=== PATIENT | male | born 1995 | race Caucasian/White ===

== ENCOUNTER 2019-08-28 02:56 | Emergency (ER) | payer BC, OTHER ==
[2019-08-28 03:06] VITALS: BP 144/84; PULSE 68; RESP 18; TEMP 97.4
[2019-08-28] MEDS ORDERED: MAG HYDROX/AL HYDROX/SIMETH 30 ML, HYOSCYAMINE ELIXIR 10 ML, LIDOCAINE VISCOUS 2% 10 ML PO STA ×3 (03:09)
[2019-08-28] MEDS ORDERED: ONDANSETRON 4 MG/2 ML VIAL IVP STA (03:24)
--- NOTE | 2019-08-28 03:24 | ED ---
General Adult HPI - General Chief complaint: Abdominal Pain Stated complaint: Upper Abd/Lft Shoulder Pain Time Seen by Provider: 08/28/19 03:08 Source: patient Mode of arrival: ambulatory - History of Present Illness Initial comments: Dictation was produced using [employer] dictation software. please excuse any grammatical, word or spelling errors. Chief Complaint: 24-year-old male in no serial past medical history presents with 7 hours of left upper quadrant abdominal pain. History of Present Illness: Patient is 24-year-old male who presents with left upper quadrant abdominal pain. Patient states his symptoms have been ongoing for the last 7 hours. He localizes the pain to his left upper quadrant. States he had some nausea but no vomiting. Patient reports that he also feels worsening symptoms when he takes a deep breath. No diarrhea. No fever, chills or night sweats. Patient did not eat any suspect foods recently. The ROS documented in this emergency department record has been reviewed and confirmed by me. Those systems with pertinent positive or negative responses have been documented in the HPI. All other systems are other negative and/or noncontributory. PHYSICAL EXAM: General Impression: Alert and oriented x3, not in acute distress HEENT: Normocephalic atraumatic, extra-ocular movements intact, pupils equal and reactive to light bilaterally, mucous membranes moist. Cardiovascular: Heart regular rate and rhythm, S1&S2 audible, no murmurs, rubs or gallops Chest: Lungs clear to auscultation bilaterally, no rhonchi, no wheeze, no rales, mild tenderness to palpation over the left ribs inferiorly Abdomen: Bowel sounds present, abdomen soft, non-tender, non-distended, no organomegaly Musculoskeletal: Pulses present and equal in all extremities, no peripheral edema Motor: no focal deficits noted Neurological: CN II-XII grossly intact, no focal motor or sensory deficits noted Skin: Intact with no visualized rashes Psych: Normal affect and mood ED course: 24-year-old male presents with chief complaint of acute abdominal pain. As upon arrival are within acceptable limits. Laboratory evaluation obtained. No leukocytosis. Hemoglobin stable. Metabolic panel is unremarkable. Urinalysis is negative. Chest x-ray and abdominal x- rays unremarkable. Of note on abdominal x-ray there is some gas at the site of where his symptoms are. This is likely secondary to gas pain. Patient reports improvement of his nausea with Zofran. Patient given starter pack Zofran ODT. He is given prescription for Bentyl that is sent to us preferred pharmacy. Prevacid discussed. Patient clear for discharge. Patient told to add more fiber to his diet. He states he only eats fast food. - Related Data Previous Rx's Medication Instructions Recorded Dicyclomine [Bentyl] 10 mg PO TID PRN #12 capsule 08/28/19 Allergies Allergy/AdvReac Type Severity Reaction Status Date / Time No Known Allergies Allergy Verified 08/28/19 03:06 Review of Systems ROS Statement: Those systems with pertinent positive or pertinent negative responses have been documented in the HPI. ROS Other: All systems not noted in ROS Statement are negative. Past Medical History Past Medical History: No Reported History History of Any Multi-Drug Resistant Organisms: None Reported Past Surgical History: Appendectomy Additional Past Surgical History / Comment(s): arachnoid cyst Past Psychological History: No Psychological Hx Reported Smoking Status: Never smoker Past Alcohol Use History: Occasional Past Drug Use History: None Reported Course Vital Signs 08/28/19 03:00 Temperature 97.4 F L Pulse Rate 68 Respiratory 18 Rate Blood Pressure 144/84 O2 Sat by Pulse 100 Oximetry Medical Decision Making - Lab Data Result diagrams: 08/28/19 03:21 08/28/19 03:21 Lab Results 08/28/19 08/28/19 08/28/19 Range/Units 03:21 03:21 03:21 WBC 9.9 (3.8-10.6) k/uL RBC 4.75 (4.30-5.90) m/uL Hgb 14.5 (13.0-17.5) gm/dL Hct 42.8 (39.0-53.0) % MCV 90.0 (80.0-100.0) fL MCH 30.4 (25.0-35.0) pg MCHC 33.8 (31.0-37.0) g/dL RDW 12.3 (11.5-15.5) % Plt Count 316 (150-450) k/uL Neutrophils % 48 % Lymphocytes % 42 % Monocytes % 5 % Eosinophils % 2 % Basophils % 1 % Neutrophils # 4.7 (1.3-7.7) k/uL Lymphocytes # 4.1 (1.0-4.8) k/uL Monocytes # 0.5 (0-1.0) k/uL Eosinophils # 0.2 (0-0.7) k/uL Basophils # 0.1 (0-0.2) k/uL Sodium 138 (137-145) mmol/L Potassium 3.8 (3.5-5.1) mmol/L Chloride 103 (98-107) mmol/L Carbon Dioxide 28 (22-30) mmol/L Anion Gap 7 mmol/L BUN 13 (9-20) mg/dL Creatinine 0.88 (0.66-1.25) mg/dL Est GFR (CKD-EPI)AfAm >90 (>60 ml/min/1.73 sqM) Est GFR (CKD-EPI)NonAf >90 (>60 ml/min/1.73 sqM) Glucose 105 H (74-99) mg/dL Calcium 9.9 (8.4-10.2) mg/dL Total Bilirubin 0.8 (0.2-1.3) mg/dL AST 36 (17-59) U/L ALT 30 (4-49) U/L Alkaline Phosphatase 70 (38-126) U/L Total Protein 7.9 (6.3-8.2) g/dL Albumin 4.9 (3.5-5.0) g/dL Lipase 77 (23-300) U/L Urine Color Light Yellow Urine Appearance Clear (Clear) Urine pH 6.5 (5.0-8.0) Ur Specific [place] 1.015 (1.001-1.035) Urine Protein Negative (Negative) Urine Glucose (UA) Negative (Negative) Urine Ketones Negative (Negative) Urine Blood Negative (Negative) Urine Nitrite Negative (Negative) Urine Bilirubin Negative (Negative) Urine Urobilinogen <2.0 (<2.0) mg/dL Ur Leukocyte Esterase Negative (Negative) Disposition Clinical Impression: Abdominal pain Disposition: HOME SELF-CARE Condition: Good Instructions (If sedation given, give patient instructions): Abdominal Pain (ED) Prescriptions: Dicyclomine [Bentyl] 10 mg PO TID PRN #12 capsule PRN Reason: gas pain Is patient prescribed a controlled substance at d/c from ED?: No Referrals: None,Stated [Primary Care Provider] - 1-2 days Time of Disposition: 03:52
[2019-08-28 03:31] LABS: Appearance,Urine Clear (Clear); Basophils # (A) 0.1 k/uL (0-0.2); Basophils % (A) 1 %; Bilirubin,Urine Negative (Negative); Blood,Urine Negative (Negative); Color,Urine Light Yellow; Eosinophils # (A) 0.2 k/uL (0-0.7); Eosinophils % (A) 2 %; Glucose,Urine (UA) Negative (Negative); HCT 42.8 % (39.0-53.0); HGB 14.5 gm/dL (13.0-17.5); Ketones,Urine Negative (Negative); Leukocyte Esterase,Urine Negative (Negative); Lymphocytes # (A) 4.1 k/uL (1.0-4.8); Lymphocytes % (A) 42 %; MCH 30.4 pg (25.0-35.0); MCHC 33.8 g/dL (31.0-37.0); Mean Platelet Volume 7.8; Monocytes # (A) 0.5 k/uL (0-1.0); Monocytes % (A) 5 %; Neutrophils # (A) 4.7 k/uL (1.3-7.7); Neutrophils % (A) 48 %; Nitrite,Urine Negative (Negative); PH, Urine 6.5 (5.0-8.0); Platelet Count 316 k/uL (150-450); Protein,Urine Negative (Negative); RBC 4.75 m/uL (4.30-5.90); RDW 12.3 % (11.5-15.5); Specific Gravity,Urine 1.015 (1.001-1.035); Urobilinogen,Urine <2.0 mg/dL (<2.0); WBC 9.9 k/uL (3.8-10.6)
--- NOTE | 2019-08-28 03:36 | XR ---
EXAMINATION TYPE: XR abdomen 1V DATE OF EXAM: 08/28/2019 COMPARISON: NONE HISTORY: Left upper quadrant pain TECHNIQUE: 2 views upright FINDINGS: Bowel gas pattern is normal. There is no sign of intestinal obstruction or pneumoperitoneum . Fecal pattern is normal. Lung bases are clear. There are no pathologic calcifications. IMPRESSION: Nonacute abdomen.
--- NOTE | 2019-08-28 03:36 | XR ---
EXAMINATION TYPE: XR chest 2V DATE OF EXAM: 08/28/2019 COMPARISON: NONE HISTORY: Left upper quadrant pain TECHNIQUE: FINDINGS: Heart and mediastinum are normal. Lungs are clear. Diaphragm is normal. Bony thorax appears normal. Pulmonary vascularity is normal. IMPRESSION: Normal chest
[2019-08-28 03:43] LABS: ALT 30 U/L (4-49); AST 36 U/L (17-59); African American GFR (CKD) >90 (>60 ml/min/1.73 sqM); Albumin 4.9 g/dL (3.5-5.0); Alkaline Phosphatase 70 U/L (38-126); Anion Gap 7 mmol/L; Blood Urea Nitrogen 13 mg/dL (9-20); Calcium 9.9 mg/dL (8.4-10.2); Carbon Dioxide 28 mmol/L (22-30); Chloride 103 mmol/L (98-107); Glucose 105 mg/dL (74-99); Non-African American GFR(CKD) >90 (>60 ml/min/1.73 sqM); Potassium 3.8 mmol/L (3.5-5.1); Sodium 138 mmol/L (137-145); Total Bilirubin 0.8 mg/dL (0.2-1.3); Total Protein 7.9 g/dL (6.3-8.2)
[2019-08-28] MEDS ORDERED: ONDANSETRON 4 MG ODT STARTER PACK 2 TAB BTL PO STA (03:49)
== END 2019-08-28 04:03 | disposition home or self-care (01) ==
LOC: EC 02:56
DX: R10.12 Left upper quadrant pain (principal); R11.0 Nausea
CPT/HCPCS: 36415; 80053; 83690; 85025; 81003; 71046; 74018; 99284; 96374; J2405; S0119

== ENCOUNTER 2020-02-07 15:21 | Emergency (ER) | payer BC ==
[2020-02-07] MEDS ORDERED: LIDOCAINE 1% INJ 10MG/ML (20 ML MDV) SQ STA (16:45)
--- NOTE | 2020-02-07 16:49 | CT ---
EXAMINATION TYPE: CT brain marizaine wo con DATE OF EXAM: 02/07/2020 COMPARISON: None HISTORY: Syncopal episode with possible injury CT DLP: 1234.3 mGycm, Automated exposure control for dose reduction was used. CONTRAST: None CT of the brain is performed utilizing 3 mm thick sections through the posterior fossa and 3 mm thick sections through the remaining calvarium. Study is performed within 24 hours of arrival to the hospital. No abnormal hyperdensity is present to suggest an acute intracranial hemorrhage. No mass lesion is evident. Arachnoid cyst is in the left middle cranial fossa. No acute infarcts are evident. Ventricles and sulci are appropriate for the patient age. There is a retention cyst within the left maxillary sinus. Tiny amount of mucosal thickenings within the right maxillary sinus. Remaining paranasal sinuses and mastoid air cells are clear. IMPRESSIONS: 1. No acute intracranial process. CT cervical spine. COMPARISON: None CT of the cervical spine is performed in the axial plane at 2 mm thick sections. Reconstructed image s in the coronal, and sagittal plane are reviewed on the computer. No acute fractures are evident. Vertebral body alignment is normal. Disc heights are preserved. Vertebral body heights are preserved. No spinal canal stenosis is evident. No neural foraminal stenosis is evident. IMPRESSIONS: 1. Normal CT cervical spine.
--- NOTE | 2020-02-07 18:22 | ED ---
General Adult HPI - General Source: patient, family, RN notes reviewed, old records reviewed Mode of arrival: wheelchair Limitations: no limitations <Christopher Catherine - Last Filed: 02/07/20 19:06> <Samantha Pavon - Last Filed: 02/08/20 12:43> - General Chief complaint: Syncope Stated complaint: CHIN lac, Syncope Time Seen by Provider: 02/07/20 15:37 - History of Present Illness Initial comments: 24-year-old male patient comes to ED after a fall episode. Patient reports that he was working at his job. He reports that he is trying to pull top off [employer] and a piece of metal came back and hit him in the chin. Patient reports he suffered a laceration. Reports she is feeling a little bit dizzy after. He states that he was in the bathroomhe had a cut. Patient reports he then went to have one of his coworkers look at it. He had a brief syncopal episode. [address]. Denies any significant head trauma. Patient reports he feels fine now. Denying any acute complaints at this time with exception of laceration. Systemic: Pt denies fatigue, fever/chills, rash. Pt denies weakness, night sweats, weight loss. Neuro: Pt denies headache, visual disturbances, pre-syncope. HEENT: Pt denies ocular discharge or irritation, otalgia, rhinorrhea, pharyngitis or notable lymphadenopathy. Cardiopulmonary: Pt denies chest pain, SOB, heart palpitations, dyspnea on exertion. Abdominal/GI: Pt denies abdominal pain, n/v/d. : Pt denies dysuria, burning w/ urination, frequency/urgency. Denies new onset urinary or bowel incontinence. MSK: Pt denies myalgia, loss of strength or function in extremities. Neuro: Pt denies new onset weakness, paresthesias. (Christopher Catherine) - Related Data Home Medications Medication Instructions Recorded Confirmed No Known Home Medications 02/07/20 02/07/20 Allergies Allergy/AdvReac Type Severity Reaction Status Date / Time No Known Allergies Allergy Verified 02/07/20 17:26 Review of Systems ROS Other: All systems not noted in ROS Statement are negative. <Christopher Catherine - Last Filed: 02/07/20 19:06> ROS Other: All systems not noted in ROS Statement are negative. <Samantha Pavon - Last Filed: 02/08/20 12:43> ROS Statement: Those systems with pertinent positive or pertinent negative responses have been documented in the HPI. Past Medical History Past Medical History: No Reported History History of Any Multi-Drug Resistant Organisms: None Reported Past Surgical History: Appendectomy Additional Past Surgical History / Comment(s): arachnoid cyst Past Psychological History: No Psychological Hx Reported Smoking Status: Never smoker Past Alcohol Use History: Occasional Past Drug Use History: None Reported <Christopher Catherine - Last Filed: 02/07/20 19:06> General Exam Limitations: no limitations <Christopher Catherine - Last Filed: 02/07/20 19:06> - General Exam Comments Initial Comments: Constitutional: NAD, AOX3, Pt has pleasant affect. HEENT: NC/AT, trachea midline, neck supple, no lymphadenopathy. External ears appear normal, without discharge. Mucous membranes moist. Eyes PERRLA, EOM intact. There is no scleral icterus. No pallor noted. Cardiopulmonary: RRR, no murmurs, rubs or gallops, no JVD noted. Lungs CTAB in anterior and posterior hernandes. No peripheral edema. Abdominal exam: Abdomen soft and non-distended. Abdomen non-tender to palpation in all 4 quadrants. Bowel sounds active in LLQ. No hepatosplenomegaly. No ecchymosis Neuro: CN II-XII intact. No nuchal rigidity. No raccon eyes, no cooley sign, no hemotympanum. No cervical spinal tenderness. MSK: No posterior calf tenderness bilaterally. Posterior tibialis and radial pulse +2 bilaterally. Sensation intact in upper and lower extremities. Full active ROM in upper and lower extremities, 5/5 stregnth. 1cm laceration anterior aspect of chin. Irrigated and approximated with 1 simple interrupted suture. (Christopher Catherine) Course Vital Signs 02/07/20 02/07/20 02/07/20 15:25 16:18 18:24 Temperature 98.4 F 99.2 F Pulse Rate 95 82 Pulse Rate [ 90 [employer] ] Respiratory 18 17 Rate Blood Pressure 151/77 134/83 O2 Sat by Pulse 100 97 Oximetry Procedures - Laceration Laceration #1 Consent Obtained: verbal consent Indication: laceration Site: face (anterior chin) Size (cm): 1 Description: linear Depth: simple, single layer Anesthetic Used: lidocaine 1% Anesthesia Technique: local infiltration Amount (mls): 1 Pre-repair: wound explored, irrigated extensively, deep structures intact Type of Sutures: nylon Size of Sutures: 5-0 Number of Sutures: 1 Patient Tolerated Procedure: well, no complications <Christopher Catherine - Last Filed: 02/07/20 19:06> Medical Decision Making - EKG Data -: EKG Interpreted by Me (and Dr. Pavon ) <Christopher Catherine - Last Filed: 02/07/20 19:06> <Samantha Pavon - Last Filed: 02/08/20 12:43> - Medical Decision Making 24-year-old male patient comes to ED after a fall episode. Patient reports that he was working at his job. He reports that he is trying to pull top off [employer] and a piece of metal came back and hit him in the chin. Patient reports he suffered a laceration. Reports she is feeling a little bit dizzy after. He states that he was in the bathroomhe had a cut. Patient reports he then went to have one of his coworkers look at it. He had a brief syncopal episode. [address]. Denies any significant head trauma. Patient reports he feels fine now. Denying any acute complaints at this time with exception of laceration. Patient will signs are stable, afebrile. Physical exam displayed a laceration of acute pathology. Neurologic exam is intact a CT brain C-spine densely acute pathology. EKG nonischemic. Laceration repair. Patient feeling baseline. Ambulatory Without difficulty. Denies acute complaints. Discharge will follow-up with occasional health for clearance return to work. Case discussed with Dr. Pavon. (Christopher Catherine) I was available for consultation in the emergency department. The history and physical exam were done by the midlevel provider. I was consulted for this patients care. I reviewed the case with the midlevel provider and based on their presentation of the patient, I agree with the assessment, medical decision making and plan of care as documented. Chart was dictated using [employer] dictation software. Attempts were made to correct any dictation errors however some typographical errors may persist. Patient was seen during a national state of emergency due to the Covid-19 pandemic. (Samantha Pavon) - EKG Data EKG Comments: Ventricular rate 83, PA interval 166, QRS 98, QT/QTC 372/437. Normal sinus rhythm, normal EKG, no concern for acute ischemia. (Christopher Catherine) Disposition Is patient prescribed a controlled substance at d/c from ED?: No <Christopher Catherine - Last Filed: 02/07/20 19:06> <Samantha Pavon - Last Filed: 02/08/20 12:43> Clinical Impression: Laceration, Syncope Disposition: HOME SELF-CARE Condition: Stable Instructions (If sedation given, give patient instructions): Laceration (ED), Syncope (DC) Additional Instructions: follow-up with primary care provider or occupational health for clearance to re turn to work. Follow-up with primary care provider in 1-2 days. Return to ER in 5 days for suture removal. Return to ER if any worsening symptoms. Please monitor for signs and symptoms of infection including: redness, warmth, drainage, discharge. Please return to ED if these signs or symptoms occur, new signs or symptoms develop or if condition worsens in anyway. Referrals: None,Stated [Primary Care Provider] - 1-2 days Robert Schwab [STAFF PHYSICIAN] - 1-2 days Harvey Rebollar MD [REFERRING] - 1-2 days
[2020-02-07 18:25] VITALS: BP 134/83; PULSE 82; RESP 17; TEMP 99.2
== END 2020-02-07 18:28 | disposition home or self-care (01) ==
LOC: EC 15:21
DX: S01.81XA Laceration without foreign body of other part of head, initial encounter (principal); R42 Dizziness and giddiness; W22.8XXA Striking against or struck by other objects, initial encounter; Y93.89 Activity, other specified; Y92.69 Other specified industrial and construction area as the place of occurrence of the external cause; Y99.0 Civilian activity done for income or pay
CPT/HCPCS: 93005; 72125; 70450; 99284; 12011; J2001

== ENCOUNTER 2021-07-07 12:36 | Emergency (ER) | payer BC, OTHER ==
[2021-07-07 12:52] VITALS: BP 142/84; PULSE 76; RESP 18; TEMP 98.4
[2021-07-07] MEDS ORDERED: ETODOLAC 400 MG TAB PO STA (13:16)
[2021-07-07] MEDS ORDERED: diazePAM 5 MG TAB PO STA (13:17)
[2021-07-07] MEDS ORDERED: ACET/COD 300 MG/30 MG STARTER PACK 6 TAB BTL PO STA (13:20)
--- NOTE | 2021-07-07 13:21 | ED ---
General Adult HPI - General Chief complaint: Neck Pain/Injury Stated complaint: Neck/head pain Time Seen by Provider: 07/07/21 13:01 Source: patient, RN notes reviewed Limitations: no limitations - History of Present Illness Initial comments: 26-year-old male presents to the emergency room for a chief complaint of neck pain. Patient states he woke up around 5 AM yesterday with some right-sided neck pain. Patient states that his head is turned to the right and he has difficulty moving it to the left. States he feels a spasm when he tries to look to the left. Patient denies any fevers or chills. Denies any injuries. Patient did have a headache prior to this but usually gets migraines from time to time. This headache felt exactly consistent. He has not had a MERIDA since yesterday .Patient has no other complaints at this time including shortness of breath, chest pain, abdominal pain, nausea or vomiting,or visual changes. - Related Data Previous Rx's Medication Instructions Recorded Cyclobenzaprine [Flexeril] 10 mg PO TID #20 tab 07/07/21 Ketorolac [Toradol] 10 mg PO TID PRN #15 tab 07/07/21 Allergies Allergy/AdvReac Type Severity Reaction Status Date / Time No Known Allergies Allergy Verified 07/07/21 12:47 Review of Systems ROS Statement: Those systems with pertinent positive or pertinent negative responses have been documented in the HPI. ROS Other: All systems not noted in ROS Statement are negative. Past Medical History Past Medical History: No Reported History Additional Past Medical History / Comment(s): migraines History of Any Multi-Drug Resistant Organisms: None Reported Past Surgical History: Appendectomy Additional Past Surgical History / Comment(s): arachnoid cyst Past Psychological History: No Psychological Hx Reported Smoking Status: Never smoker Past Alcohol Use History: Occasional Past Drug Use History: None Reported General Exam Limitations: no limitations General appearance: alert, in no apparent distress Head exam: Present: atraumatic Eye exam: Present: normal appearance, PERRL, EOMI. Absent: scleral icterus, con junctival injection ENT exam: Present: normal exam, mucous membranes moist Neck exam: Absent: meningismus, full ROM (Patient has neck turned to the right. He is able to look to the left only to the neutral position. Tenderness along the SCM of the right side. No midline tenderness.) Respiratory exam: Present: normal lung sounds bilaterally. Absent: respiratory distress, wheezes Cardiovascular Exam: Present: regular rate, normal rhythm, normal heart sounds GI/Abdominal exam: Present: soft, normal bowel sounds. Absent: distended, tenderness Course Vital Signs 07/07/21 12:48 Temperature 98.4 F Pulse Rate 76 Respiratory 18 Rate Blood Pressure 142/84 O2 Sat by Pulse 100 Oximetry Medical Decision Making - Medical Decision Making Vitals are stable. Patient is well-appearing. Symptoms consistent with spasmodic torticollis. Patient was advised to have IM medications however refuses this, does not want shots. Therefore we'll start him on oral Toradol. He will not take Motrin and is aware of the risk of doing that. Patient will be discharged home with Flexeril after given by mouth Valium here in the emergency room. He will follow-up with his doctor. He will return here for any worsening symptoms or Disposition Clinical Impression: Spasmodic torticollis Disposition: HOME SELF-CARE Condition: Good Instructions (If sedation given, give patient instructions): Spasmodic Torticollis (ED) Additional Instructions: Please take Toradol or do not take Motrin. You can take Tylenol as well. Take Flexeril but do not drive taking this. Please follow up with primary care in 1- 2 days. Return to the ER for any worsening symptoms. Prescriptions: Cyclobenzaprine [Flexeril] 10 mg PO TID #20 tab Ketorolac [Toradol] 10 mg PO TID PRN #15 tab PRN Reason: Pain Is patient prescribed a controlled substance at d/c from ED?: No Referrals: Miroslava Wen MD [STAFF PHYSICIAN] - 1-2 days Time of Disposition: 13:17
== END 2021-07-07 13:58 | disposition home or self-care (01) ==
LOC: EC 12:36
DX: G24.3 Spasmodic torticollis (principal)
CPT/HCPCS: 99283